=== PATIENT | female | born 1985 | race African-American/Black ===

== ENCOUNTER 2022-11-13 16:20 | Emergency (ER) | payer SELFPAY ==
[~2022-11-13] VITALS: Ht 165.1 cm; Wt 40.8 kg
[2022-11-13 16:29] VITALS: BP 116/70; PULSE 57; RESP 16; TEMP 98.1; O2SAT 99
[2022-11-13 18:27] LABS: +ADD MANUAL DIFF(NO CHRG) NO; BASOPHIL % 0.2 % (0.0-0.2); EOSINOPHIL % 0.3 % (0.0-5.0); HEMATOCRIT(ML) 42.6 % (36.0-46.0); HEMOGLOBIN 14.1 g/dL (12.0-15.0); LYMPHOCYTES % 18.6 % (24.0-44.0); MEAN CORP HGB 30.6 pg (26-34); MEAN CORP HGB CONCENTRATION 33.1 g/dL (33-36.5); MEAN CORP VOLUME 92.4 fL (78-100); MONOCYTES # 0.6 10^3/uL (0.3-0.8); MONOCYTES % 7.4 % (5.0-12.0); NEUTROPHIL # 6.3 10^3/uL (1.8-7.7); NEUTROPHILS % 73.3 % (41.0-85.0); PLATELET COUNT 202 10^3/uL (150-400); RED BLOOD CELL 4.61 10^6/uL (4.00-5.20); RED CELL DISTRIBUTION WIDTH 12.7 % (11.5-14.5); WHITE BLOOD CELL 8.6 10^3/uL (4.5-11.0)
[2022-11-13 19:24] VITALS: BP 108/51; PULSE 69; RESP 16; TEMP 98.1; O2SAT 96
== END 2022-11-13 19:24 | disposition home or self-care (01) ==
LOC: ER 16:20
DX: R07.89 Other chest pain (principal)
CPT/HCPCS: 36415; 80053; 83690; 84484; 85025; 85610; 93005; 99284